=== PATIENT | male | born 1965 | race Caucasian/White ===

== ENCOUNTER 2023-01-03 07:51 | Outpatient (CLI) | payer OTHER, SELFPAY | END 2023-01-03 07:52 | disposition home or self-care (01) | LOC: NFLDREF 12:45 | PROVIDERS: PCP Family Medicine; Referring Provider Family Medicine; Visit Provider Family Medicine | DX: Z00.00 Encounter for general adult medical examination without abnormal findings (principal); E78.00 Pure hypercholesterolemia, unspecified; E78.5 Hyperlipidemia, unspecified; Z12.5 Encounter for screening for malignant neoplasm of prostate | CPT/HCPCS: 80053; 80061 ==

== ENCOUNTER 2024-03-09 08:04 | Outpatient (CLI) | payer OTHER, SELFPAY ==
--- OUTSIDE RECORDS SUMMARY | 2024-03-09 11:44 | XMS_ITS | Clinical Summary ---
Author Organization [facility] Address [place], [place] [address] Care Team Providers Care Timber Deadener Name Role Phone Song Ruiz MD Primary Care Provider [phone] Medications No known medications Active Problems No known active problems Social History Tobacco Use Types Packs/Day Years Used Date Smoking Tobacco: Never Smokeless Tobacco: Never Tobacco Cessation:Counseling Given: Yes Alcohol Use Standard Drinks/Week Comments Yes 0 (1 standard drink = 0.6 oz pur e alcohol) PHQ-2 Answer Date Recorded PHQ-2 Score 0 02/13/2019 Sex and Gender Information Value Date Recorded Sex Assigned at Not on file Gender Identity Not on file Sexual Orientation Not on file Obstetrics History Last Filed Vital Signs Vital Sign Reading Time Taken Comments Blood Pressure 128/84 02/13/2019 3:47 PM CDT Pulse 58 02/13/2019 3:47 PM CDT Temperature 37.1 ??C (98.7 ??F) 02/13/2019 3:47 PM CD T Respiratory Rate - - Oxygen Saturation 98% 02/13/2019 3:47 PM CDT Inhaled Oxygen Concentration - - Weight 95.4 kg (210 lb 6.4 oz) 02/13/2019 3:47 P M CDT Height 181.4 cm (5' 11.42) 02/13/2019 3:47 PM C DT Body Mass Index 29 02/13/2019 3:47 PM CDT Plan of Treatment Health Maintenance Due Date Last Done Comments Tdap 1977 HIV for age 15-65 1981 Hepatitis C screening for ag e 18-79 1984 Tetanus booster 1986 Colonoscopy through age 75 2011 Lipids for age 45-75 2011 05/23/2004, 01/11/2003, 01/11/2003 Zoster (shingles) series for age 50+ (1 of 2) 2016 BMI (ht and wt on same day) for age 18+ 02/14/2020 02/13/2019 Depression screening for age 12+ 02/14/2020 02/13/2019 COVID-19 vaccine series (2023- season) 2024 Influenza for age 50-64 01/26/2024 Pneumococcal series for age 6-64 Aged Out No longer eligible b ased on patient's age to complete this topic Procedures Procedure Name Priority Date/Time Associated Diagnosis Comments LIPID PANEL Timed 05/23/2004 10:25 AM ASSURANCE ASSOCIATE from Last 3 Months or Most Recently Relevant to Health Maintenance Results * (ABNORMAL) LIPID PANEL (05/23/2004 10:25 AM ASSURANCE ASSOCIATE) CHOLESTEROL,TOTAL 320(H) 110 - 199 mg/dL [facility] TRIGLYCERIDES 219(H) 40 - 149 mg/dL [facility] HDL CHOLESTEROL 46 41 - 75 mg/dL [facility] CHOL/HDL RATIO 6.96(H) <4.51 [facility] LDL CHOLESTEROL 230(H) 60 - 130 mg/dL [facility] PATIENT STATUS Fasting [facility] 05/23/2004 10:2 5 AM ASSURANCE ASSOCIATE 05/23/2004 3:37 PM ASSURANCE ASSOCIATE Atif Ryan MD CHEMISTRY [facility] INTERNAL ZIP [id number] [address] from Last 3 Months or Most Recently Relevant to Health Maintenance Care Teams Timber Deadener Relationship Specialty Start Date End Date Song Ruiz MD [address] [place] [address] PCP - General Family Practice 02/13/19
== END 2024-03-09 08:05 | disposition home or self-care (01) ==
LOC: NFLDREF 11:42
PROVIDERS: PCP Family Medicine; Referring Provider Family Medicine; Visit Provider Family Medicine
DX: E78.5 Hyperlipidemia, unspecified (principal); Z12.5 Encounter for screening for malignant neoplasm of prostate
CPT/HCPCS: 80053; 80061; G0103

== ENCOUNTER 2025-01-19 15:06 | Outpatient (CLI) | payer OTHER, SELFPAY ==
--- NOTE | 2025-01-19 14:45 | CRLHL7_ITS ---
For Patients: As a result of the Century Cures Act, medical imaging exams and procedure reports are released immediately into your electronic medical record. You may view this report before your referring provider. If you have questions, please contact your health care provider. INDICATION: Left testicle lump COMPARISON: none TECHNIQUE: Nice scale imaging was performed of the scrotum. In addition color Doppler and spectral Doppler analysis was performed of the testes. FINDINGS: The testes demonstrate normal arterial and venous blood flow on color Doppler and spectral Doppler analysis. The testes have uniform echogenicity with no evidence of a suspicious mass or area of inflammation. The right testis measures 4.2 x 2.6 x 3.2 cm in size and the left testis measures 4.7 x 2.5 x 3.2 cm. Lobular left epididymal head cyst is present which measures 1.3 x 1.9 x 1.8 cm. Thin internal septations are noted. Normal right epididymis. There is no evidence of a hydrocele or varicocele. IMPRESSION: Left epididymal head cyst is present which measures 1.9 cm. This cyst is mildly complex containing thin internal septations. No solid component. Normal testicles. Dictated by Koby Barrientos MD @ 01/19/2025 4:21:13 PM (Electronically Signed)
== END 2025-01-19 15:07 | disposition home or self-care (01) ==
PROVIDERS: PCP Family Medicine; Visit Provider Family Medicine
DX: N50.89 Other specified disorders of the male genital organs (principal)
CPT/HCPCS: 76870; 93976

== ENCOUNTER 2025-05-11 07:55 | Outpatient (CLI) | payer OTHER, SELFPAY | END 2025-05-11 07:56 | disposition home or self-care (01) | LOC: NFLDREF 05-13 14:24 | PROVIDERS: PCP Family Medicine; Referring Provider Family Medicine; Visit Provider Family Medicine | DX: E78.5 Hyperlipidemia, unspecified (principal); Z12.5 Encounter for screening for malignant neoplasm of prostate | CPT/HCPCS: 80053; 80061; G0103 ==